=== PATIENT | male | born 1950 | race Hispanic/Latino ===

== ENCOUNTER 2020-06-13 12:25 | Outpatient (CLI) | payer MEDICARE ==
[2020-06-13 15:16] LABS: Hemoglobin 14.3 g/dL (13.5-17.5); Mean Corpuscular HGB CONC 31.8 g/dL (32.0-36.0); Mean Corpuscular Hemoglobin 28.8 pg (27.0-33.0); Mean Corpuscular Volume 90.7 fl (81.2-95.1); Mean Platelet Volume 11.2 fl (7.4-10.4); Platelet Count 304 10x3/uL (150-450); RBC Distribution Width 14.2 % (11.5-14.5); Red Blood Cell (RBC) Count 4.96 10x6/uL (4.32-5.72); White Blood Cell (WBC) Count 8.7 10x3/uL (3.5-10.5)
[2020-06-13 15:30] LABS: Prothrombin Time 10.6 sec (9.5-12.1)
[2020-06-13 15:33] LABS: Anion Gap 13 mmol/L (10-20); BUN (Urea Nitrogen) 11 mg/dL (8.4-25.7); Calc. Creatinine Clearance 0 mL/min (70-130); Calcium 9.9 mg/dL (7.8-10.44); Carbon Dioxide 26 mmol/L (23-31); Chloride 106 mmol/L (98-107); Glucose 80 mg/dL (80-115); Potassium 4.7 mmol/L (3.5-5.1); Sodium 140 mmol/L (136-145)
[2020-06-14 02:10] LABS: SARS-CoV-2 PCR by NAA Not Detected (NotDetected)
== END 2020-06-13 12:26 | disposition home or self-care (01) ==
LOC: LABBT 12:25
PROVIDERS: ATTEND Neurological Surgery
DX: Z01.812 Encounter for preprocedural laboratory examination (principal); M47.12 Other spondylosis with myelopathy, cervical region; Z20.822 Contact with and (suspected) exposure to COVID-19
CPT/HCPCS: 80048; 85027; 85610; 85730; U0003; U0005; 87635

== ENCOUNTER 2020-06-16 10:17 | Inpatient (IN) | payer MEDICARE ==
[2020-06-15 10:55] VITALS: BMI 33.0
[2020-06-16] MEDS ORDERED: EPINEPHrine 1 MG/ML AMP ONE (10:42)
[2020-06-16] MEDS ORDERED: Bupivacaine PF 0.5% 30 ML VIAL ONE (10:42)
[2020-06-16] MEDS ORDERED: Thrombin 5000 UNITS/5 ML VIAL ONE (10:43)
[2020-06-16] MEDS ORDERED: Bacitracin Zinc Ointment 30 gm TUBE ONE (10:43)
[2020-06-16] MEDS ORDERED: Fentanyl 100 MCG/2 ML VIAL ONE ×4 (12:05→19:22)
[2020-06-16] MEDS ORDERED: HYDROmorphone 0.5 MG/0.5 ML SYRINGE ONE (12:21)
[2020-06-16] MEDS ORDERED: ePHEDrine Sulfate 50 MG/10 ML VIAL ONE ×2 (12:29→14:38)
[2020-06-16] MEDS ORDERED: Lidocaine 1% PF 5 ML VIAL ONE (12:29)
[2020-06-16] MEDS ORDERED: Rocuronium Bromide 10 MG/ML (10ML VIAL) ONE (12:29)
[2020-06-16] MEDS ORDERED: PROPOFOL 200 MG/20 ML VIAL ONE (12:29)
[2020-06-16] MEDS ORDERED: PHENYLEPHRINE-NS 100 MCG/ML 10 ML SYRINGE ONE (12:29)
[2020-06-16] MEDS ORDERED: Ondansetron PF 4 MG/2 ML Vial ONE (12:29)
[2020-06-16] MEDS ORDERED: Glycopyrrolate 0.2 MG/ML 5 ML SYRINGE ONE (12:29)
[2020-06-16] MEDS ORDERED: Dexamethasone 20 MG/5 ML VIAL ONE (12:29)
[2020-06-16] MEDS ORDERED: Ondansetron HCl/PF 4 MG/2 ML Vial IVP PRN (13:31)
[2020-06-16] MEDS ORDERED: Promethazine HCl 25 MG/ML VIAL SLOW IVP PRN (13:31)
[2020-06-16] MEDS ORDERED: Promethazine HCl 25 MG/ML VIAL IM PRN ×2 (13:31→16:21)
[2020-06-16] MEDS ORDERED: Meperidine HCl/PF 25 MG/ML VIAL SLOW IVP PRN (13:31)
[2020-06-16] MEDS ORDERED: Promethazine 25 MG TAB PO PRN (16:21)
[2020-06-16] MEDS ORDERED: diphenhydrAMINE 50 MG/ML VIAL IVP PRN (16:21)
[2020-06-16] MEDS ORDERED: Acetaminophen/Codeine 30-300mg Tablet PO PRN ×2 (16:21)
[2020-06-16] MEDS ORDERED: diphenhydrAMINE 25 MG CAP PO PRN (16:21)
[2020-06-16] MEDS ORDERED: Promethazine HCl 12.5 MG SUPP PR PRN (16:21)
[2020-06-16] MEDS ORDERED: Bisacodyl 10 MG SUPP PR PRN (16:21)
[2020-06-16] MEDS ORDERED: traMADol HCl 50 MG TAB PO PRN (16:21)
[2020-06-16] MEDS ORDERED: Mag-Al 1200 mg/1200 mg/30 ML UDCUP PO PRN (16:21)
[2020-06-16] MEDS ORDERED: Ondansetron PF 4 MG/2 ML Vial IVP PRN (16:21)
[2020-06-16] MEDS: CEFAZOLIN 2 GM in Premix Bag 1 BAG IVPB SCH (20:54)
[2020-06-16] MEDS ORDERED: Acetaminophen 650 MG Suppository PR PRN (21:54)
[2020-06-16] MEDS ORDERED: Dextrose 5% in Water 1,000 ML IV PRN (21:56)
[2020-06-16] MEDS ORDERED: Dextrose 50% Abboject 50 ML SYRINGE SLOW IVP PRN (21:56)
[2020-06-16] MEDS: Sodium Chloride 0.9% 1,000 ML IV SCH (21:56)
[2020-06-16] MEDS ORDERED: HumaLOG 300 UNITS/3 ML VIAL SC PRN ×2 (21:56)
[2020-06-16] MEDS: tiZANidine HCl 4 MG TAB PO PRN (22:25)
[2020-06-16 22:31] LABS: #Basophils 0.1 thou/uL (0.0-0.2); #Lymphocytes 1.1 thou/uL (1.20-3.40); #Monocytes 0.6 thou/uL (0.11-0.59); #Neutrophils 16.6 thou/uL (1.40-6.50); %Basophils 0.4 % (0.0-1.0); %Lymphocytes 5.8 % (21.0-51.0); %Neutrophils 90.7 % (42.0-75.0); Hemoglobin 14.2 g/dL (14.0-18.0); Mean Corpuscular HGB CONC 31.1 g/dL (32.0-36.0); Mean Corpuscular Volume 93.3 fL (78.0-98.0); Mean Platelet Volume 8.2 fL (7.4-10.4); Platelet Count 280 thou/uL (130-400); Red Blood Cell (RBC) Count 4.88 mill/uL (4.70-6.10); White Blood Cell (WBC) Count 18.2 thou/uL (4.8-10.8)
[2020-06-16 22:51] LABS: Anion Gap 14 mmol/L (10-20); BUN (Urea Nitrogen) 15 mg/dL (8.4-25.7); Calc. Creatinine Clearance 97 mL/min (70-130); Calcium 9.3 mg/dL (7.8-10.44); Carbon Dioxide 21 mmol/L (23-31); Chloride 104 mmol/L (98-107); Glucose 188 mg/dL (80-115); Magnesium 1.7 mg/dL (1.6-2.6); Potassium 4.4 mmol/L (3.5-5.1); Sodium 135 mmol/L (136-145)
[2020-06-17] MEDS: HYDROcodone/Acetaminophen 10/325 mg Tablet PO PRN ×5 (01:06→22:46)
[2020-06-17] MEDS: CEFAZOLIN 2 GM in Premix Bag 1 BAG IVPB SCH ×2 (03:21→13:08)
[2020-06-17] MEDS: Morphine 2 MG/ML VIAL SLOW IVP PRN ×2 (03:27→04:34)
[2020-06-17] MEDS ORDERED: Magnesium 2 GM/50 ML 2 GM in Premix Bag 1 BAG IVPB SCH (03:30)
[2020-06-17] MEDS: Scopolamine 1.5 mg/72 hour Patch TD SCH (04:02)
[2020-06-17] MEDS: tiZANidine HCl 4 MG TAB PO PRN (04:09)
[2020-06-17] MEDS: Tamsulosin HCl 0.4 MG CAP PO SCH (04:34)
[2020-06-17] MEDS: Sodium Chloride 0.9% 1,000 ML IV SCH ×2 (05:00→20:25)
[2020-06-17 05:56] LABS: Band 9 % (5-11); Hemoglobin 13.2 g/dL (14.0-18.0); Lymphocytes 11 % (21-51); MDiff Complete? YES; Mean Corpuscular HGB CONC 30.9 g/dL (32.0-36.0); Mean Corpuscular Hemoglobin 28.6 pg (27.0-31.0); Mean Corpuscular Volume 92.6 fL (78.0-98.0); Mean Platelet Volume 8.6 fL (7.4-10.4); Monocytes 7 % (0-10); Neutrophil 73 % (42-75); Platelet Count 258 thou/uL (130-400); Platelet Morphology Comment Appears Adequate; RBC Distribution Width 12.9 % (11.5-14.5); RBC Morphology Normal; Red Blood Cell (RBC) Count 4.62 mill/uL (4.70-6.10)
[2020-06-17 06:05] LABS: Anion Gap 14 mmol/L (10-20); BUN (Urea Nitrogen) 14 mg/dL (8.4-25.7); Calc. Creatinine Clearance 116 mL/min (70-130); Calcium 9.3 mg/dL (7.8-10.44); Carbon Dioxide 24 mmol/L (23-31); Chloride 102 mmol/L (98-107); Glucose 138 mg/dL (80-115); Potassium 4.3 mmol/L (3.5-5.1); Sodium 136 mmol/L (136-145)
[2020-06-17] MEDS: metFORMIN 500 MG TAB PO SCH (08:49)
[2020-06-17] MEDS: Amlodipine 10 MG TAB PO SCH (09:46)
[2020-06-17] MEDS: Trospium 20 MG TAB PO SCH ×2 (09:47→21:21)
[2020-06-17] MEDS: Loratadine 10 MG TAB PO SCH (09:47)
[2020-06-17 10:57] LABS: Lactic Acid 1.5 mmol/L (0.5-2.2)
[2020-06-17] MEDS: traZODone HCl 50 MG TAB PO SCH (21:22)
[2020-06-17] MEDS: Cephalexin 250 MG CAP PO SCH (22:46)
[2020-06-18 00:03] LABS: Bacteria/HPF None Seen HPF (None Seen); Bilirubin Negative (Negative); Blood, Urine Negative (Negative); Clarity Clear (Clear); Glucose, Urine (Dipstick) 70 mg/dL (Negative); Ketone, Urine Negative (Negative); Leukocyte Negative Leu/uL (Negative); Nitrite Negative (Negative); Protein, Urine (Dipstick) 10 mg/dL (Neg-Trace); RBC/HPF 0-3 HPF (0-3); Squamous Epithelial 0-3 HPF (0-3); Urobilinogen Normal mg/dL (Less than 2); WBC/HPF 0-3 HPF (0-3)
[2020-06-18] MEDS: tiZANidine HCl 4 MG TAB PO PRN ×3 (01:03→16:54)
[2020-06-18] MEDS: traMADol HCl 50 MG TAB PO PRN ×2 (01:04→12:14)
[2020-06-18 05:30] LABS: #Basophils 0.1 thou/uL (0.0-0.2); #Eosinphils 0.1 thou/uL (0.0-0.7); #Lymphocytes 3.9 thou/uL (1.20-3.40); #Monocytes 2.5 thou/uL (0.11-0.59); #Neutrophils 12.4 thou/uL (1.40-6.50); %Basophils 0.3 % (0.0-1.0); %Eosinophils 0.4 % (0.0-10.0); %Lymphocytes 20.8 % (21.0-51.0); %Neutrophils 65.6 % (42.0-75.0); Hemoglobin 12.7 g/dL (14.0-18.0); Mean Corpuscular HGB CONC 31.3 g/dL (32.0-36.0); Mean Corpuscular Hemoglobin 29.4 pg (27.0-31.0); Mean Platelet Volume 8.7 fL (7.4-10.4); Platelet Count 251 thou/uL (130-400); Red Blood Cell (RBC) Count 4.31 mill/uL (4.70-6.10); White Blood Cell (WBC) Count 18.9 thou/uL (4.8-10.8)
[2020-06-18] MEDS: HYDROcodone/Acetaminophen 10/325 mg Tablet PO PRN ×3 (05:51→16:53)
[2020-06-18] MEDS: Tamsulosin HCl 0.4 MG CAP PO SCH (05:51)
[2020-06-18] MEDS: Cephalexin 250 MG CAP PO SCH (05:51)
[2020-06-18] MEDS: Sodium Chloride 0.9% 1,000 ML IV SCH ×2 (08:16→21:36)
[2020-06-18] MEDS: Loratadine 10 MG TAB PO SCH (09:06)
[2020-06-18] MEDS: Trospium 20 MG TAB PO SCH ×2 (09:06→21:19)
[2020-06-18] MEDS: Amlodipine 10 MG TAB PO SCH (09:06)
[2020-06-18] MEDS: metFORMIN 500 MG TAB PO SCH (09:06)
[2020-06-18] MEDS: traZODone HCl 50 MG TAB PO SCH (21:19)
[2020-06-19] MEDS: HYDROcodone/Acetaminophen 10/325 mg Tablet PO PRN ×6 (03:44→20:47)
[2020-06-19 05:34] LABS: #Basophils 0.1 thou/uL (0.0-0.2); #Eosinphils 0.2 thou/uL (0.0-0.7); #Lymphocytes 4.4 thou/uL (1.20-3.40); #Monocytes 2.1 thou/uL (0.11-0.59); #Neutrophils 8.7 thou/uL (1.40-6.50); %Basophils 0.8 % (0.0-1.0); %Eosinophils 1.3 % (0.0-10.0); %Lymphocytes 28.5 % (21.0-51.0); %Monocytes 13.4 % (0.0-10.0); %Neutrophils 56.1 % (42.0-75.0); Hemoglobin 12.5 g/dL (14.0-18.0); Mean Corpuscular HGB CONC 32.7 g/dL (32.0-36.0); Mean Corpuscular Hemoglobin 30.7 pg (27.0-31.0); Mean Corpuscular Volume 93.8 fL (78.0-98.0); Mean Platelet Volume 8.9 fL (7.4-10.4); Platelet Count 247 thou/uL (130-400); RBC Distribution Width 12.8 % (11.5-14.5); Red Blood Cell (RBC) Count 4.07 mill/uL (4.70-6.10); White Blood Cell (WBC) Count 15.5 thou/uL (4.8-10.8)
[2020-06-19 05:58] LABS: Anion Gap 12 mmol/L (10-20); BUN (Urea Nitrogen) 13 mg/dL (8.4-25.7); Calc. Creatinine Clearance 137 mL/min (70-130); Calcium 9.9 mg/dL (7.8-10.44); Carbon Dioxide 25 mmol/L (23-31); Chloride 102 mmol/L (98-107); Glucose 104 mg/dL (80-115); Potassium 4.2 mmol/L (3.5-5.1); Sodium 135 mmol/L (136-145)
[2020-06-19] MEDS: Tamsulosin HCl 0.4 MG CAP PO SCH (06:04)
[2020-06-19] MEDS: tiZANidine HCl 4 MG TAB PO PRN ×4 (07:22→22:46)
[2020-06-19] MEDS: metFORMIN 500 MG TAB PO SCH (08:26)
[2020-06-19] MEDS: Trospium 20 MG TAB PO SCH ×2 (08:26→20:46)
[2020-06-19] MEDS: Loratadine 10 MG TAB PO SCH (08:26)
[2020-06-19] MEDS: Amlodipine 10 MG TAB PO SCH (08:26)
[2020-06-19] MEDS: Sodium Chloride 0.9% 1,000 ML IV SCH (13:36)
[2020-06-19] MEDS: Scopolamine 1.5 mg/72 hour Patch TD SCH (16:45)
[2020-06-19] MEDS: traZODone HCl 50 MG TAB PO SCH (20:47)
[2020-06-19] MEDS: traMADol HCl 50 MG TAB PO PRN (22:45)
[2020-06-20] MEDS: Sodium Chloride 0.9% 1,000 ML IV SCH ×2 (01:45→10:25)
[2020-06-20] MEDS: tiZANidine HCl 4 MG TAB PO PRN ×4 (04:26→23:05)
[2020-06-20] MEDS: HYDROcodone/Acetaminophen 10/325 mg Tablet PO PRN ×5 (04:26→23:04)
[2020-06-20] MEDS: Tamsulosin HCl 0.4 MG CAP PO SCH (05:17)
[2020-06-20 06:32] LABS: #Basophils 0.1 thou/uL (0.0-0.2); #Eosinphils 0.4 thou/uL (0.0-0.7); #Lymphocytes 4.5 thou/uL (1.20-3.40); #Monocytes 1.6 thou/uL (0.11-0.59); %Basophils 0.7 % (0.0-1.0); %Eosinophils 2.7 % (0.0-10.0); %Lymphocytes 33.1 % (21.0-51.0); %Monocytes 11.8 % (0.0-10.0); %Neutrophils 51.8 % (42.0-75.0); Hemoglobin 12.4 g/dL (14.0-18.0); Mean Corpuscular Volume 93.3 fL (78.0-98.0); Mean Platelet Volume 8.9 fL (7.4-10.4); Platelet Count 297 thou/uL (130-400); RBC Distribution Width 12.7 % (11.5-14.5); Red Blood Cell (RBC) Count 4.29 mill/uL (4.70-6.10); White Blood Cell (WBC) Count 13.5 thou/uL (4.8-10.8)
[2020-06-20 06:45] LABS: Anion Gap 11 mmol/L (10-20); BUN (Urea Nitrogen) 13 mg/dL (8.4-25.7); Calc. Creatinine Clearance 135 mL/min (70-130); Calcium 9.9 mg/dL (7.8-10.44); Carbon Dioxide 27 mmol/L (23-31); Chloride 100 mmol/L (98-107); Glucose 93 mg/dL (80-115); Potassium 3.9 mmol/L (3.5-5.1); Sodium 134 mmol/L (136-145)
[2020-06-20] MEDS: Trospium 20 MG TAB PO SCH ×2 (09:06→20:29)
[2020-06-20] MEDS: Loratadine 10 MG TAB PO SCH (09:06)
[2020-06-20] MEDS: metFORMIN 500 MG TAB PO SCH (09:06)
[2020-06-20] MEDS: Amlodipine 10 MG TAB PO SCH (09:06)
[2020-06-20] MEDS: Milk Of Magnesia 30 ML UDCUP PO PRN (17:58)
[2020-06-20] MEDS: traZODone HCl 50 MG TAB PO SCH (20:29)
[2020-06-21] MEDS: Sodium Chloride 0.9% 1,000 ML IV SCH ×2 (05:34→12:35)
[2020-06-21] MEDS: HYDROcodone/Acetaminophen 10/325 mg Tablet PO PRN ×3 (05:44→20:09)
[2020-06-21] MEDS: Tamsulosin HCl 0.4 MG CAP PO SCH (05:44)
[2020-06-21] MEDS: Trospium 20 MG TAB PO SCH ×2 (08:08→20:07)
[2020-06-21] MEDS: Loratadine 10 MG TAB PO SCH (08:08)
[2020-06-21] MEDS: metFORMIN 500 MG TAB PO SCH (08:08)
[2020-06-21] MEDS: Amlodipine 10 MG TAB PO SCH (08:08)
[2020-06-21] MEDS: Milk Of Magnesia 30 ML UDCUP PO PRN (08:39)
[2020-06-21] MEDS: tiZANidine HCl 4 MG TAB PO PRN (20:08)
[2020-06-21] MEDS: traZODone HCl 50 MG TAB PO SCH (20:08)
[2020-06-22] MEDS: HYDROcodone/Acetaminophen 10/325 mg Tablet PO PRN ×4 (01:39→18:06)
[2020-06-22] MEDS: Sodium Chloride 0.9% 1,000 ML IV SCH (05:54)
[2020-06-22] MEDS: Tamsulosin HCl 0.4 MG CAP PO SCH (06:10)
[2020-06-22] MEDS: metFORMIN 500 MG TAB PO SCH (08:21)
[2020-06-22] MEDS: Amlodipine 10 MG TAB PO SCH (08:21)
[2020-06-22] MEDS: Loratadine 10 MG TAB PO SCH (08:21)
[2020-06-22] MEDS: Trospium 20 MG TAB PO SCH ×2 (08:22→20:11)
[2020-06-22] MEDS: tiZANidine HCl 4 MG TAB PO PRN ×2 (10:21→18:05)
[2020-06-22] MEDS: Scopolamine 1.5 mg/72 hour Patch TD SCH (18:07)
[2020-06-22] MEDS: traMADol HCl 50 MG TAB PO PRN (20:09)
[2020-06-22] MEDS: traZODone HCl 50 MG TAB PO SCH (20:11)
[2020-06-23] MEDS: Sodium Chloride 0.9% 1,000 ML IV SCH ×3 (00:06→22:51)
[2020-06-23] MEDS: traMADol HCl 50 MG TAB PO PRN ×2 (03:28→20:36)
[2020-06-23] MEDS: HYDROcodone/Acetaminophen 10/325 mg Tablet PO PRN ×3 (06:14→18:36)
[2020-06-23] MEDS: Tamsulosin HCl 0.4 MG CAP PO SCH (06:14)
[2020-06-23] MEDS: Amlodipine 10 MG TAB PO SCH (10:10)
[2020-06-23] MEDS: Trospium 20 MG TAB PO SCH ×2 (10:10→20:32)
[2020-06-23] MEDS: Loratadine 10 MG TAB PO SCH (10:11)
[2020-06-23] MEDS: metFORMIN 500 MG TAB PO SCH (10:11)
[2020-06-23] MEDS: tiZANidine HCl 4 MG TAB PO PRN (15:24)
[2020-06-23] MEDS: traZODone HCl 50 MG TAB PO SCH (20:32)
[2020-06-24] MEDS: Tamsulosin HCl 0.4 MG CAP PO SCH (06:04)
[2020-06-24] MEDS: HYDROcodone/Acetaminophen 10/325 mg Tablet PO PRN ×3 (06:08→14:40)
[2020-06-24] MEDS: Amlodipine 10 MG TAB PO SCH (08:40)
[2020-06-24] MEDS: Trospium 20 MG TAB PO SCH ×2 (08:40→21:20)
[2020-06-24] MEDS: metFORMIN 500 MG TAB PO SCH (08:40)
[2020-06-24] MEDS: Loratadine 10 MG TAB PO SCH (08:40)
[2020-06-24] MEDS: Sodium Chloride 0.9% 1,000 ML IV SCH (14:56)
[2020-06-24] MEDS: Acetaminophen 325 MG TAB PO PRN (18:38)
[2020-06-24] MEDS: traZODone HCl 50 MG TAB PO SCH (21:20)
[2020-06-25] MEDS: Acetaminophen 325 MG TAB PO PRN ×3 (00:20→12:52)
[2020-06-25] MEDS: Sodium Chloride 0.9% 1,000 ML IV SCH ×2 (01:24→12:56)
[2020-06-25] MEDS: tiZANidine HCl 4 MG TAB PO PRN ×2 (02:09→08:18)
[2020-06-25] MEDS: Tamsulosin HCl 0.4 MG CAP PO SCH (05:52)
[2020-06-25] MEDS ORDERED: Acetaminophen/Codeine 30-300mg Tablet PO PRN (07:05)
[2020-06-25] MEDS ORDERED: Morphine 2 MG/ML VIAL SLOW IVP PRN (07:15)
[2020-06-25] MEDS: Acetaminophen/Codeine 30-300mg Tablet PO PRN ×3 (08:17→21:27)
[2020-06-25] MEDS: Amlodipine 10 MG TAB PO SCH (08:18)
[2020-06-25] MEDS: metFORMIN 500 MG TAB PO SCH (08:18)
[2020-06-25] MEDS: Loratadine 10 MG TAB PO SCH (08:18)
[2020-06-25] MEDS ORDERED: tiZANidine HCl 4 MG TAB PO PRN (09:00)
[2020-06-25] MEDS: Trospium 20 MG TAB PO SCH ×2 (09:15→20:24)
[2020-06-25] MEDS ORDERED: Ibuprofen 600 MG TAB PO PRN (14:38)
[2020-06-25] MEDS: Milk Of Magnesia 30 ML UDCUP PO PRN (15:32)
[2020-06-25] MEDS: Scopolamine 1.5 mg/72 hour Patch TD SCH (16:18)
[2020-06-25] MEDS: traZODone HCl 50 MG TAB PO SCH (20:24)
[2020-06-25] MEDS: Gabapentin 100 MG CAP PO SCH (20:24)
[2020-06-26] MEDS: Sodium Chloride 0.9% 1,000 ML IV SCH ×2 (04:26→15:45)
[2020-06-26] MEDS: Acetaminophen/Codeine 30-300mg Tablet PO PRN ×3 (05:31→20:54)
[2020-06-26] MEDS: Tamsulosin HCl 0.4 MG CAP PO SCH (05:31)
[2020-06-26 07:52] LABS: #Basophils 0.1 thou/uL (0.0-0.2); #Eosinphils 0.5 thou/uL (0.0-0.7); #Lymphocytes 5.1 thou/uL (1.20-3.40); #Monocytes 1.6 thou/uL (0.11-0.59); #Neutrophils 5.7 thou/uL (1.40-6.50); %Basophils 0.9 % (0.0-1.0); %Eosinophils 4.1 % (0.0-10.0); %Lymphocytes 38.8 % (21.0-51.0); %Monocytes 12.6 % (0.0-10.0); %Neutrophils 43.6 % (42.0-75.0); Hemoglobin 14.1 g/dL (14.0-18.0); Mean Corpuscular HGB CONC 31.9 g/dL (32.0-36.0); Mean Corpuscular Hemoglobin 29.3 pg (27.0-31.0); Mean Platelet Volume 7.6 fL (7.4-10.4); Platelet Count 430 thou/uL (130-400); RBC Distribution Width 12.3 % (11.5-14.5); Red Blood Cell (RBC) Count 4.81 mill/uL (4.70-6.10); White Blood Cell (WBC) Count 13.1 thou/uL (4.8-10.8)
[2020-06-26 08:13] LABS: Anion Gap 13 mmol/L (10-20); BUN (Urea Nitrogen) 12 mg/dL (8.4-25.7); Calc. Creatinine Clearance 113 mL/min (70-130); Calcium 10.9 mg/dL (7.8-10.44); Carbon Dioxide 26 mmol/L (23-31); Chloride 101 mmol/L (98-107); Glucose 104 mg/dL (80-115); Potassium 4.1 mmol/L (3.5-5.1); Sodium 136 mmol/L (136-145)
[2020-06-26] MEDS: Trospium 20 MG TAB PO SCH ×2 (09:02→20:54)
[2020-06-26] MEDS: Amlodipine 10 MG TAB PO SCH (09:02)
[2020-06-26] MEDS: metFORMIN 500 MG TAB PO SCH (09:02)
[2020-06-26] MEDS: Loratadine 10 MG TAB PO SCH (09:02)
[2020-06-26] MEDS: tiZANidine HCl 4 MG TAB PO PRN (12:55)
[2020-06-26] MEDS: Gabapentin 100 MG CAP PO SCH (20:53)
[2020-06-26] MEDS: traZODone HCl 50 MG TAB PO SCH (20:54)
[2020-06-27] MEDS: Acetaminophen/Codeine 30-300mg Tablet PO PRN ×3 (03:53→15:37)
[2020-06-27] MEDS: Tamsulosin HCl 0.4 MG CAP PO SCH (05:21)
[2020-06-27] MEDS: Sodium Chloride 0.9% 1,000 ML IV SCH (05:35)
[2020-06-27] MEDS: Loratadine 10 MG TAB PO SCH (07:53)
[2020-06-27] MEDS: Amlodipine 10 MG TAB PO SCH (07:53)
[2020-06-27] MEDS: metFORMIN 500 MG TAB PO SCH (07:53)
[2020-06-27] MEDS: Trospium 20 MG TAB PO SCH (07:54)
[2020-06-27 12:04] VITALS: BP 144/75; TEMP 98
[2020-06-27] MEDS: tiZANidine HCl 4 MG TAB PO PRN (15:37)
== END 2020-06-27 15:46 | disposition swing bed (61) | DRG 520 ==
LOC: SDC 10:17 → SURG A 16:21
PROVIDERS: ADMIT Neurological Surgery; ATTEND Internal Medicine
PROC: 00NW0ZZ Release Cervical Spinal Cord, Open Approach (ICD-10-PCS; principal; 2020-06-16)
PROC: 00NX0ZZ Release Thoracic Spinal Cord, Open Approach (ICD-10-PCS; 2020-06-16)
DX: M47.12 Other spondylosis with myelopathy, cervical region (principal); Z20.822 Contact with and (suspected) exposure to COVID-19; M48.02 Spinal stenosis, cervical region; E11.9 Type 2 diabetes mellitus without complications; E78.5 Hyperlipidemia, unspecified; I10 Essential (primary) hypertension; E78.00 Pure hypercholesterolemia, unspecified; M19.90 Unspecified osteoarthritis, unspecified site; G89.29 Other chronic pain; M54.2 Cervicalgia; M54.9 Dorsalgia, unspecified; F41.9 Anxiety disorder, unspecified; F32.9 Major depressive disorder, single episode, unspecified; F43.10 Post-traumatic stress disorder, unspecified; E66.9 Obesity, unspecified; F39 Unspecified mood [affective] disorder; N40.1 Benign prostatic hyperplasia with lower urinary tract symptoms; R35.0 Frequency of micturition; N39.498 Other specified urinary incontinence; R30.0 Dysuria; M79.662 Pain in left lower leg; S86.812A Strain of other muscle(s) and tendon(s) at lower leg level, left leg, initial encounter; Z68.33 Body mass index [BMI] 33.0-33.9, adult; Z87.891 Personal history of nicotine dependence; Z82.49 Family history of ischemic heart disease and other diseases of the circulatory system; Z90.49 Acquired absence of other specified parts of digestive tract; Z79.82 Long term (current) use of aspirin; Z83.3 Family history of diabetes mellitus; Z82.3 Family history of stroke; Z88.8 Allergy status to other drugs, medicaments and biological substances; Z79.84 Long term (current) use of oral hypoglycemic drugs; M48.061 Spinal stenosis, lumbar region without neurogenic claudication
CPT/HCPCS: 36415; 36416; 71045; 76000; 80048; 81001; 83605; 83735; 85007; 85025; 85027; 85610; 85730; 87635; 93970; J0171; J0690; J1100; J1170; J2270; J2405; J2704; J3010; J3370; J3475; J3490; Q0163; S0020; U0003; U0005

== ENCOUNTER 2022-04-06 06:19 | Inpatient (IN) | payer MEDICARE ==
[2022-04-04 11:37] VITALS: BMI 36.0
[2022-04-06] MEDS ORDERED: Neomycin-Polymyxin 1 ML AMP ONE (06:23)
[2022-04-06] MEDS ORDERED: Thrombin 5000 UNITS/5 ML VIAL ONE (06:23)
[2022-04-06] MEDS ORDERED: fentaNYL PF 100 MCG/2 ML SYRINGE ONE (06:30)
[2022-04-06] MEDS ORDERED: PHENYLEPHRINE-NS 100 MCG/ML 10 ML SYRINGE ONE ×2 (06:31→07:09)
[2022-04-06] MEDS ORDERED: CEFAZOLIN 2 GM VIAL ONE ×2 (06:46→14:19)
[2022-04-06] MEDS ORDERED: Sodium Chloride 0.9% 100 ML ONE ×2 (06:46→14:19)
[2022-04-06 07:02] LABS: #Basophils 0.1 thou/uL (0.0-0.2); #Eosinphils 0.7 thou/uL (0.0-0.7); #Lymphocytes 5.6 thou/uL (1.20-3.40); #Neutrophils 4.2 thou/uL (1.40-6.50); %Eosinophils 6.3 % (0.0-10.0); %Lymphocytes 48.1 % (21.0-51.0); %Monocytes 8.9 % (0.0-10.0); %Neutrophils 35.7 % (42.0-75.0); Hemoglobin 15.2 g/dL (14.0-18.0); Mean Corpuscular HGB CONC 32.1 g/dL (32.0-36.0); Mean Corpuscular Hemoglobin 30.1 pg (27.0-31.0); Mean Corpuscular Volume 93.8 fl (78.0-98.0); Mean Platelet Volume 9.8 fL (7.4-10.4); Platelet Count 222 10x3/uL (130-400); RBC Distribution Width 12.6 % (11.5-14.5); Red Blood Cell (RBC) Count 5.04 mill/uL (4.70-6.10); White Blood Cell (WBC) Count 11.7 10x3/uL (4.8-10.8)
[2022-04-06] MEDS ORDERED: Midazolam HCl 2 mg/2 ml Vial ONE (07:03)
[2022-04-06] MEDS ORDERED: PROPOFOL 200 MG/20 ML VIAL ONE (07:09)
[2022-04-06] MEDS ORDERED: Ondansetron PF 4 MG/2 ML Vial ONE (07:09)
[2022-04-06] MEDS ORDERED: Ketorolac Tromethamine 30 MG/ML VIAL ONE (07:09)
[2022-04-06] MEDS ORDERED: Rocuronium Bromide 10 MG/ML (10ML VIAL) ONE (07:09)
[2022-04-06] MEDS ORDERED: ePHEDrine 50 MG/ML VIAL ONE (07:09)
[2022-04-06 07:26] LABS: Anion Gap 15 mmol/L (10-20); BUN (Urea Nitrogen) 8 mg/dL (8.4-25.7); Calc. Creatinine Clearance 132 mL/min (70-130); Calcium 10.5 mg/dL (7.8-10.44); Carbon Dioxide 24 mmol/L (23-31); Chloride 106 mmol/L (98-107); Estimated GFR 97; Glucose 90 mg/dL (80-115); Potassium 4.8 mmol/L (3.5-5.1); Sodium 140 mmol/L (136-145)
[2022-04-06 07:31] LABS: SARS-CoV-2 NAA Rapid Test Not Detected (NotDetected)
[2022-04-06 07:33] LABS: INR-International Normal Ratio 0.9; Prothrombin Time 12.8 sec (12.0-14.7)
[2022-04-06 07:34] LABS: PTT 29.5 sec (22.9-36.1)
[2022-04-06] MEDS ORDERED: SUGAMMADEX SODIUM 200 MG/2 ML VIAL ONE (09:59)
[2022-04-06] MEDS ORDERED: HYDROmorphone 2 MG/ML VIAL SLOW IVP PRN (10:32)
[2022-04-06] MEDS ORDERED: Ondansetron HCl/PF 4 MG/2 ML Vial IVP PRN (10:32)
[2022-04-06] MEDS ORDERED: Fentanyl 100 MCG/2 ML VIAL ONE (10:54)
[2022-04-06] MEDS ORDERED: Ondansetron PF 4 MG/2 ML Vial IVP PRN (12:11)
[2022-04-06] MEDS: CEFAZOLIN 2 GM in Sodium Chloride 0.9% 100 ML IVPB SCH ×2 (14:24→21:24)
[2022-04-06] MEDS: Gabapentin 400 MG CAP PO SCH ×2 (15:12→21:22)
[2022-04-06] MEDS: Sodium Chloride 0.9% 1,000 ML IV SCH (15:13)
[2022-04-06] MEDS ORDERED: diphenhydrAMINE 25 MG CAP PO PRN (15:25)
[2022-04-06] MEDS ORDERED: diphenhydrAMINE 50 MG/ML VIAL IVP PRN (15:25)
[2022-04-06] MEDS: Morphine 2 MG/ML VIAL SLOW IVP PRN ×2 (21:23→23:37)
[2022-04-06] MEDS: HYDROcodone/Acetaminophen 10/325 mg Tablet PO PRN (21:24)
[2022-04-07] MEDS: Morphine 2 MG/ML VIAL SLOW IVP PRN ×2 (03:36→06:20)
[2022-04-07] MEDS: HYDROcodone/Acetaminophen 10/325 mg Tablet PO PRN ×4 (03:38→21:58)
[2022-04-07] MEDS: Brimonidine Tartrate 0.2% Ophth Soln 5 ml Bottle EA EYE SCH ×3 (03:39→21:53)
[2022-04-07] MEDS: Acetaminophen 325 MG TAB PO PRN ×2 (03:39→10:34)
[2022-04-07] MEDS: Sodium Chloride 0.9% 1,000 ML IV SCH ×2 (05:09→16:47)
[2022-04-07] MEDS ORDERED: hydrALAZINE 20 MG/ML VIAL SLOW IVP PRN (06:16)
[2022-04-07] MEDS: Acetaminophen/Codeine 30-300mg Tablet PO PRN (06:21)
[2022-04-07] MEDS: Tamsulosin HCl 0.4 MG CAP PO SCH (06:21)
[2022-04-07] MEDS: Amlodipine 10 MG TAB PO SCH (10:23)
[2022-04-07] MEDS: Loratadine 10 MG TAB PO SCH (10:23)
[2022-04-07] MEDS: Gabapentin 400 MG CAP PO SCH ×3 (10:36→21:53)
[2022-04-07] MEDS: tiZANidine HCl 4 MG TAB PO PRN (16:56)
[2022-04-07] MEDS: Latanoprost 0.005% Ophth Soln 2.5 ml Bottle L EYE SCH (17:02)
[2022-04-08] MEDS: Sodium Chloride 0.9% 1,000 ML IV SCH ×2 (01:19→16:01)
[2022-04-08] MEDS: HYDROcodone/Acetaminophen 10/325 mg Tablet PO PRN ×3 (02:59→22:15)
[2022-04-08] MEDS: Tamsulosin HCl 0.4 MG CAP PO SCH (04:06)
[2022-04-08] MEDS: Acetaminophen 325 MG TAB PO PRN ×2 (04:07→17:24)
[2022-04-08] MEDS: Loratadine 10 MG TAB PO SCH (08:24)
[2022-04-08] MEDS: Gabapentin 400 MG CAP PO SCH ×3 (08:24→22:14)
[2022-04-08] MEDS: Latanoprost 0.005% Ophth Soln 2.5 ml Bottle L EYE SCH (08:25)
[2022-04-08] MEDS: Brimonidine Tartrate 0.2% Ophth Soln 5 ml Bottle EA EYE SCH ×2 (08:25→22:15)
[2022-04-08] MEDS: tiZANidine HCl 4 MG TAB PO PRN ×2 (08:25→22:15)
[2022-04-08] MEDS: Amlodipine 10 MG TAB PO SCH (08:25)
[2022-04-08] MEDS: Acetaminophen/Codeine 30-300mg Tablet PO PRN (11:46)
[2022-04-08] MEDS: HYDROcodone/Acetaminophen 7.5/325 mg Tablet PO PRN (16:46)
[2022-04-08 17:42] LABS: Bacteria/HPF None Seen HPF (None Seen); Bilirubin Negative (Negative); Blood, Urine Negative (Negative); CAUTI Indications for Culture Fever or rigors; Clarity Clear (Clear); Glucose, Urine (Dipstick) Normal (Negative); Ketone, Urine Negative (Negative); Leukocyte Negative Leu/uL (Negative); Mucous/LPF 2+ LPF (<2+); Nitrite Negative (Negative); Protein, Urine (Dipstick) 20 mg/dL (Neg-Trace); RBC/HPF 0-3 HPF (0-3); Specific Gravity, Urine 1.029 (1.002-1.036); Squamous Epithelial 0-3 HPF (0-3); Urobilinogen Normal mg/dL (Less than 2); WBC/HPF 0-3 HPF (0-3)
[2022-04-08 18:02] LABS: Urine Culture Reflex No No
[2022-04-09] MEDS: Sodium Chloride 0.9% 1,000 ML IV SCH ×2 (04:52→22:00)
[2022-04-09] MEDS: HYDROcodone/Acetaminophen 10/325 mg Tablet PO PRN ×2 (06:06→11:38)
[2022-04-09] MEDS: Tamsulosin HCl 0.4 MG CAP PO SCH (06:06)
[2022-04-09] MEDS: Amlodipine 10 MG TAB PO SCH (09:09)
[2022-04-09] MEDS: Brimonidine Tartrate 0.2% Ophth Soln 5 ml Bottle EA EYE SCH ×2 (09:09→22:00)
[2022-04-09] MEDS: Loratadine 10 MG TAB PO SCH (09:09)
[2022-04-09] MEDS: Latanoprost 0.005% Ophth Soln 2.5 ml Bottle L EYE SCH (09:12)
[2022-04-09] MEDS: Acetaminophen/Codeine 30-300mg Tablet PO PRN ×2 (09:16→15:41)
[2022-04-09] MEDS: Gabapentin 400 MG CAP PO SCH ×3 (09:17→21:47)
[2022-04-09] MEDS ORDERED: Polyethylene Glycol 3350 17 GM Packet PO SCH (11:30)
[2022-04-09] MEDS: Acetaminophen 325 MG TAB PO PRN (21:50)
[2022-04-09] MEDS: tiZANidine HCl 4 MG TAB PO PRN (21:59)
[2022-04-10] MEDS: Tamsulosin HCl 0.4 MG CAP PO SCH (05:11)
[2022-04-10] MEDS: HYDROcodone/Acetaminophen 7.5/325 mg Tablet PO PRN (05:11)
[2022-04-10] MEDS: Loratadine 10 MG TAB PO SCH (08:31)
[2022-04-10] MEDS: Amlodipine 10 MG TAB PO SCH (08:31)
[2022-04-10] MEDS: Gabapentin 400 MG CAP PO SCH ×3 (08:31→20:50)
[2022-04-10] MEDS: Acetaminophen/Codeine 30-300mg Tablet PO PRN ×2 (08:32→20:50)
[2022-04-10] MEDS: Latanoprost 0.005% Ophth Soln 2.5 ml Bottle L EYE SCH (08:32)
[2022-04-10] MEDS: tiZANidine HCl 4 MG TAB PO PRN (08:39)
[2022-04-10] MEDS: Sodium Chloride 0.9% 1,000 ML IV SCH ×2 (09:34→20:52)
[2022-04-10] MEDS: Brimonidine Tartrate 0.2% Ophth Soln 5 ml Bottle EA EYE SCH ×2 (09:51→20:51)
[2022-04-10] MEDS: HYDROcodone/Acetaminophen 10/325 mg Tablet PO PRN ×2 (13:15→17:30)
[2022-04-10] MEDS ORDERED: Fleet Saline Enema 133 ML BOT FS SCH (14:45)
[2022-04-10] MEDS ORDERED: Docusate 100 MG CAP PO SCH (14:45)
[2022-04-11] MEDS: tiZANidine HCl 4 MG TAB PO PRN ×2 (03:24→15:07)
[2022-04-11] MEDS: HYDROcodone/Acetaminophen 10/325 mg Tablet PO PRN (03:24)
[2022-04-11] MEDS: Tamsulosin HCl 0.4 MG CAP PO SCH (05:44)
[2022-04-11] MEDS: Acetaminophen/Codeine 30-300mg Tablet PO PRN ×2 (05:44→15:04)
[2022-04-11] MEDS ORDERED: Bisacodyl 10 MG SUPP PR PRN (06:14)
[2022-04-11] MEDS ORDERED: Polyethylene Glycol 3350 17 GM Packet PO SCH (09:00)
[2022-04-11] MEDS ORDERED: Docusate 100 MG CAP PO SCH (09:00)
[2022-04-11] MEDS: Gabapentin 400 MG CAP PO SCH ×2 (09:03→15:05)
[2022-04-11] MEDS: Loratadine 10 MG TAB PO SCH (09:04)
[2022-04-11] MEDS: Amlodipine 10 MG TAB PO SCH (09:04)
[2022-04-11] MEDS: Latanoprost 0.005% Ophth Soln 2.5 ml Bottle L EYE SCH (09:05)
[2022-04-11] MEDS: Brimonidine Tartrate 0.2% Ophth Soln 5 ml Bottle EA EYE SCH (09:06)
[2022-04-11 12:57] VITALS: BP 172/82; TEMP 99.3
[2022-04-11] MEDS: Sodium Chloride 0.9% 1,000 ML IV SCH (13:27)
== END 2022-04-11 18:10 | disposition home or self-care (01) | DRG 473 ==
LOC: SDC 06:19 → SJJU 11:46 → OBSVTOIN 04-08 20:02
PROVIDERS: ADMIT Neurological Surgery; ATTEND Neurological Surgery
PROC: 0RG10A0 Fusion of Cervical Vertebral Joint with Interbody Fusion Device, Anterior Approach, Anterior Column, Open Approach (ICD-10-PCS; principal; 2022-04-06)
PROC: 0RB30ZZ Excision of Cervical Vertebral Disc, Open Approach (ICD-10-PCS; 2022-04-06)
PROC: 00NW0ZZ Release Cervical Spinal Cord, Open Approach (ICD-10-PCS; 2022-04-06)
PROC: 3E033XZ Introduction of Vasopressor into Peripheral Vein, Percutaneous Approach (ICD-10-PCS; 2022-04-06)
DX: M50.023 Cervical disc disorder at C6-C7 level with myelopathy (principal); I10 Essential (primary) hypertension; Z90.49 Acquired absence of other specified parts of digestive tract; Z83.3 Family history of diabetes mellitus; Z82.49 Family history of ischemic heart disease and other diseases of the circulatory system; Z87.891 Personal history of nicotine dependence; Z98.890 Other specified postprocedural states; Z79.899 Other long term (current) drug therapy; Z79.84 Long term (current) use of oral hypoglycemic drugs; Z91.040 Latex allergy status; Z20.822 Contact with and (suspected) exposure to COVID-19; Z90.81 Acquired absence of spleen
CPT/HCPCS: 36415; 36416; 71045; 80048; 81001; 85025; 85610; 85730; 87086; 93005; 93010; 93970; 96374; 96375; 96376; C1713; G0378; J1885; J2250; J2272; J2405; J2704; J3010; J3490; U0002

== ENCOUNTER 2022-07-02 06:34 | Inpatient (IN) | payer MEDICARE ==
[2022-07-02] MEDS ORDERED: Morphine 2 MG/ML VIAL SLOW IVP PRN (06:42)
[2022-07-02] MEDS ORDERED: Prochlorperazine 10 MG/2 ML VIAL IM PRN (06:42)
[2022-07-02] MEDS ORDERED: Mag-Al 1200 mg/1200 mg/30 ML UDCUP PO PRN (06:42)
[2022-07-02] MEDS ORDERED: diphenhydrAMINE 50 MG/ML VIAL IVP PRN (06:42)
[2022-07-02] MEDS ORDERED: Ondansetron PF 4 MG/2 ML Vial IVP PRN (06:42)
[2022-07-02] MEDS ORDERED: Milk Of Magnesia 30 ML UDCUP PO PRN (06:42)
[2022-07-02] MEDS ORDERED: Bisacodyl 10 MG SUPP PR PRN (06:42)
[2022-07-02] MEDS: Sodium Chloride 0.9% 1,000 ML IV SCH ×2 (06:45→21:05)
[2022-07-02] MEDS ORDERED: Tamsulosin HCl 0.4 MG CAP PO SCH (07:15)
[2022-07-02] MEDS ORDERED: Lidocaine 1% MPF 2 ML VIAL ONE (07:58)
[2022-07-02] MEDS ORDERED: CEFAZOLIN 2 GM VIAL ONE (07:58)
[2022-07-02] MEDS ORDERED: Sodium Chloride 0.9% 100 ML ONE (07:59)
[2022-07-02] MEDS: CEFAZOLIN 2 GM in Sodium Chloride 0.9% 100 ML IVPB SCH ×3 (08:00→21:04)
[2022-07-02 08:10] LABS: #Basophils 0.1 thou/uL (0.0-0.2); #Eosinphils 0.5 thou/uL (0.0-0.7); #Lymphocytes 4.7 thou/uL (1.20-3.40); #Monocytes 1.1 thou/uL (0.11-0.59); #Neutrophils 5.2 thou/uL (1.40-6.50); %Basophils 0.9 % (0.0-1.0); %Eosinophils 3.9 % (0.0-10.0); %Lymphocytes 40.5 % (21.0-51.0); %Monocytes 9.5 % (0.0-10.0); %Neutrophils 45.3 % (42.0-75.0); Mean Corpuscular HGB CONC 33.1 g/dL (32.0-36.0); Mean Corpuscular Hemoglobin 30.7 pg (27.0-31.0); Mean Corpuscular Volume 92.6 fl (78.0-98.0); Mean Platelet Volume 8.9 fL (7.4-10.4); Platelet Count 245 10x3/uL (130-400); RBC Distribution Width 13.3 % (11.5-14.5); White Blood Cell (WBC) Count 11.6 10x3/uL (4.8-10.8)
[2022-07-02 08:23] LABS: INR-International Normal Ratio 0.9; Prothrombin Time 12.7 sec (12.0-14.7)
[2022-07-02 08:24] LABS: PTT 28.4 sec (22.9-36.1)
[2022-07-02 08:31] LABS: Anion Gap 13 mmol/L (10-20); BUN (Urea Nitrogen) 15 mg/dL (8.4-25.7); Calc. Creatinine Clearance 125 mL/min (70-130); Calcium 10.7 mg/dL (7.8-10.44); Carbon Dioxide 22 mmol/L (23-31); Chloride 108 mmol/L (98-107); Estimated GFR 95; Glucose 109 mg/dL (80-115); Potassium 4.2 mmol/L (3.5-5.1); Sodium 139 mmol/L (136-145)
[2022-07-02] MEDS: Gabapentin 400 MG CAP PO SCH ×3 (09:00→21:03)
[2022-07-02] MEDS: Amlodipine 10 MG TAB PO SCH (09:00)
[2022-07-02] MEDS: Loratadine 10 MG TAB PO SCH (09:00)
[2022-07-02] MEDS ORDERED: Thrombin 5000 UNITS/5 ML VIAL ONE ×2 (09:22→09:23)
[2022-07-02] MEDS ORDERED: Vancomycin 1 GM VIAL ONE ×2 (09:22→14:22)
[2022-07-02] MEDS ORDERED: Bupivacaine HCl 0.5%/Epinephrine 1:200,000/PF 30 ml Vial ONE (09:23)
[2022-07-02] MEDS ORDERED: Fentanyl 250 MCG/5 ML VIAL ONE (09:29)
[2022-07-02] MEDS ORDERED: Albumin 5% 500 ML ONE (09:29)
[2022-07-02] MEDS ORDERED: Dexmedetomidine 200 MCG/2 ML VIAL ONE (09:29)
[2022-07-02] MEDS ORDERED: MINERAL OIL/WHITE PETROLATUM 3.5 GM TUBE ONE (09:40)
[2022-07-02] MEDS ORDERED: ePHEDrine Sulfate 50 MG/10 ML VIAL ONE (09:44)
[2022-07-02] MEDS ORDERED: Dexamethasone 20 MG/5 ML VIAL ONE (09:44)
[2022-07-02] MEDS ORDERED: PHENYLEPHRINE-NS 100 MCG/ML 10 ML SYRINGE ONE (09:44)
[2022-07-02] MEDS ORDERED: Lidocaine 1% PF 5 ML VIAL ONE (09:44)
[2022-07-02] MEDS ORDERED: Rocuronium Bromide 10 MG/ML (10ML VIAL) ONE (09:44)
[2022-07-02] MEDS ORDERED: Vecuronium 10 MG VIAL ONE (09:44)
[2022-07-02] MEDS ORDERED: Propofol 1,000 MG/100 ML VIAL IV ONE (09:44)
[2022-07-02] MEDS ORDERED: Ondansetron PF 4 MG/2 ML Vial ONE (09:44)
[2022-07-02] MEDS ORDERED: Sevoflurane 250 ML INH ANEST BOTTLE ONE (12:21)
[2022-07-02] MEDS ORDERED: SUGAMMADEX SODIUM 200 MG/2 ML VIAL ONE (13:54)
[2022-07-02] MEDS ORDERED: Ondansetron HCl/PF 4 MG/2 ML Vial IVP PRN (15:18)
[2022-07-02] MEDS ORDERED: Promethazine HCl 25 MG/ML VIAL IM PRN (15:18)
[2022-07-02] MEDS ORDERED: HYDROmorphone 2 MG/ML VIAL SLOW IVP PRN (15:18)
[2022-07-02] MEDS ORDERED: HYDROmorphone 0.5 MG/0.5 ML SYRINGE ONE ×4 (15:24→16:01)
[2022-07-02] MEDS ORDERED: Tamsulosin HCl 0.4 MG CAP ONE (15:24)
[2022-07-02] MEDS ORDERED: fentaNYL 50 mcg/mL 1 mL Vial ONE ×2 (16:21→16:38)
[2022-07-02] MEDS: HYDROcodone/Acetaminophen 10/325 mg Tablet PO PRN ×2 (18:36→23:22)
[2022-07-02] MEDS: tiZANidine HCl 4 MG TAB PO PRN (21:03)
[2022-07-03] MEDS: Tamsulosin HCl 0.4 MG CAP PO SCH ×2 (05:10→20:49)
[2022-07-03] MEDS: CEFAZOLIN 2 GM in Sodium Chloride 0.9% 100 ML IVPB SCH (05:10)
[2022-07-03] MEDS: HYDROcodone/Acetaminophen 10/325 mg Tablet PO PRN ×2 (05:12→23:25)
[2022-07-03] MEDS ORDERED: Simethicone Chewable 80 MG TAB PO SCH (07:00)
[2022-07-03] MEDS: Amlodipine 10 MG TAB PO SCH (08:30)
[2022-07-03] MEDS: Loratadine 10 MG TAB PO SCH (08:32)
[2022-07-03] MEDS: Gabapentin 400 MG CAP PO SCH ×3 (08:32→20:50)
[2022-07-03] MEDS: HYDROcodone/Acetaminophen 7.5/325 mg Tablet PO PRN (08:36)
[2022-07-03] MEDS: Sodium Chloride 0.9% 1,000 ML IV SCH (11:16)
[2022-07-03] MEDS: Acetaminophen/Codeine 30-300mg Tablet PO PRN (16:03)
[2022-07-03 17:16] LABS: Mean Corpuscular HGB CONC 32.9 g/dL (32.0-36.0); Mean Corpuscular Hemoglobin 30.8 pg (27.0-31.0); Mean Corpuscular Volume 93.5 fl (78.0-98.0); Mean Platelet Volume 9.3 fL (7.4-10.4); Platelet Count 194 10x3/uL (130-400); RBC Distribution Width 13.3 % (11.5-14.5); Red Blood Cell (RBC) Count 4.23 mill/uL (4.70-6.10); White Blood Cell (WBC) Count 16.7 10x3/uL (4.8-10.8)
[2022-07-03 17:25] LABS: Anion Gap 12 mmol/L (10-20); BUN (Urea Nitrogen) 14 mg/dL (8.4-25.7); Calc. Creatinine Clearance 118 mL/min (70-130); Calcium 9.9 mg/dL (7.8-10.44); Carbon Dioxide 26 mmol/L (23-31); Chloride 105 mmol/L (98-107); Estimated GFR 93; Glucose 142 mg/dL (80-115); Magnesium 1.9 mg/dL (1.6-2.6); Potassium 4.5 mmol/L (3.5-5.1); Sodium 138 mmol/L (136-145)
[2022-07-03 17:39] LABS: Phosphorus 1.9 mg/dL (2.3-4.7)
[2022-07-03 17:46] LABS: Troponin I Less than 0.010 ng/mL (< 0.028)
[2022-07-03 18:46] LABS: Band 4 % (5-11); Lymphocytes 16 % (21-51); MDiff Complete? YES; Monocytes 13 % (0-10); Neutrophil 67 % (42-75); Platelet Morphology Comment Appears Adequate; RBC Morphology Normal
[2022-07-03] MEDS ORDERED: Lidocaine 4% Patch TD PRN (19:52)
[2022-07-03 20:29] LABS: Troponin I Less than 0.010 ng/mL (< 0.028)
[2022-07-03] MEDS: Brimonidine Tartrate 0.2% Ophth Soln 5 ml Bottle EA EYE SCH (20:49)
[2022-07-03] MEDS: Acetaminophen 325 MG TAB PO PRN (20:50)
[2022-07-03 21:12] LABS: Bacteria/HPF None Seen HPF (None Seen); Bilirubin Negative (Negative); Blood, Urine Negative (Negative); Clarity Clear (Clear); Glucose, Urine (Dipstick) 50 mg/dL (Negative); Ketone, Urine Negative (Negative); Leukocyte Negative Leu/uL (Negative); Nitrite Negative (Negative); Protein, Urine (Dipstick) 20 mg/dL (Neg-Trace); RBC/HPF 0-3 HPF (0-3); Specific Gravity, Urine 1.023 (1.002-1.036); Squamous Epithelial 0-3 HPF (0-3); Urobilinogen Normal mg/dL (Less than 2); WBC/HPF 0-3 HPF (0-3); pH, Urine 5.5 (5.0-9.0)
[2022-07-04] LABS: Troponin I 0.014 ng/mL (< 0.028)
[2022-07-04] MEDS: Sodium Chloride 0.9% 1,000 ML IV SCH ×2 (02:25→12:05)
[2022-07-04] MEDS: Tamsulosin HCl 0.4 MG CAP PO SCH ×2 (08:49→20:52)
[2022-07-04] MEDS: Loratadine 10 MG TAB PO SCH (08:49)
[2022-07-04] MEDS: Amlodipine 10 MG TAB PO SCH (08:50)
[2022-07-04] MEDS: Gabapentin 400 MG CAP PO SCH ×3 (08:50→20:52)
[2022-07-04] MEDS: Polyethylene Glycol 3350 17 GM Packet PO SCH (08:51)
[2022-07-04] MEDS: Brimonidine Tartrate 0.2% Ophth Soln 5 ml Bottle EA EYE SCH ×2 (08:51→20:53)
[2022-07-04] MEDS: Latanoprost 0.005% Ophth Soln 2.5 ml Bottle L EYE SCH (08:52)
[2022-07-04] MEDS: HYDROcodone/Acetaminophen 10/325 mg Tablet PO PRN ×2 (08:53→15:24)
[2022-07-04] MEDS: Transdermal Patch Removal TOP SCH (09:00)
[2022-07-04 09:23] LABS: Hemoglobin 11.8 g/dL (14.0-18.0); Mean Corpuscular HGB CONC 33.4 g/dL (32.0-36.0); Mean Corpuscular Volume 92.9 fl (78.0-98.0); Mean Platelet Volume 8.7 fL (7.4-10.4); Platelet Count 197 10x3/uL (130-400); RBC Distribution Width 13.3 % (11.5-14.5); White Blood Cell (WBC) Count 17.5 10x3/uL (4.8-10.8)
[2022-07-04 09:38] LABS: Anion Gap 11 mmol/L (10-20); BUN (Urea Nitrogen) 11 mg/dL (8.4-25.7); Calc. Creatinine Clearance 124 mL/min (70-130); Calcium 9.6 mg/dL (7.8-10.44); Carbon Dioxide 25 mmol/L (23-31); Chloride 105 mmol/L (98-107); Estimated GFR 95; Glucose 136 mg/dL (80-115); Potassium 4.4 mmol/L (3.5-5.1); Sodium 137 mmol/L (136-145)
[2022-07-04 10:23] LABS: Eosinophils 1 % (0-10); Lymphocytes 24 % (21-51); MDiff Complete? YES; Monocytes 14 % (0-10); Neutrophil 61 % (42-75); Platelet Morphology Comment Appears Adequate; RBC Morphology Normal
[2022-07-04] MEDS: Acetaminophen/Codeine 30-300mg Tablet PO PRN ×2 (12:04→21:02)
[2022-07-04] MEDS: tiZANidine HCl 4 MG TAB PO PRN (17:04)
[2022-07-05] MEDS: Acetaminophen/Codeine 30-300mg Tablet PO PRN (00:50)
[2022-07-05] MEDS: Sodium Chloride 0.9% 1,000 ML IV SCH (03:37)
[2022-07-05] MEDS: Tamsulosin HCl 0.4 MG CAP PO SCH ×2 (05:34→21:19)
[2022-07-05] MEDS: tiZANidine HCl 4 MG TAB PO PRN (05:34)
[2022-07-05 06:09] LABS: #Basophils 0.1 thou/uL (0.0-0.2); #Eosinphils 0.5 thou/uL (0.0-0.7); #Lymphocytes 4.5 thou/uL (1.20-3.40); #Monocytes 2.2 thou/uL (0.11-0.59); #Neutrophils 8.9 thou/uL (1.40-6.50); %Basophils 0.6 % (0.0-1.0); %Eosinophils 3.1 % (0.0-10.0); %Lymphocytes 27.7 % (21.0-51.0); %Monocytes 13.5 % (0.0-10.0); %Neutrophils 55.2 % (42.0-75.0); Hemoglobin 11.5 g/dL (14.0-18.0); Mean Corpuscular HGB CONC 33.4 g/dL (32.0-36.0); Mean Corpuscular Hemoglobin 31.7 pg (27.0-31.0); Mean Corpuscular Volume 95.1 fl (78.0-98.0); Mean Platelet Volume 8.9 fL (7.4-10.4); Platelet Count 194 10x3/uL (130-400); RBC Distribution Width 13.2 % (11.5-14.5); Red Blood Cell (RBC) Count 3.61 mill/uL (4.70-6.10); White Blood Cell (WBC) Count 16.1 10x3/uL (4.8-10.8)
[2022-07-05 06:23] LABS: Anion Gap 12 mmol/L (10-20); BUN (Urea Nitrogen) 13 mg/dL (8.4-25.7); Calc. Creatinine Clearance 134 mL/min (70-130); Calcium 9.8 mg/dL (7.8-10.44); Carbon Dioxide 26 mmol/L (23-31); Chloride 104 mmol/L (98-107); Estimated GFR 97; Glucose 103 mg/dL (80-115); Potassium 4.1 mmol/L (3.5-5.1); Sodium 138 mmol/L (136-145)
[2022-07-05] MEDS: Gabapentin 400 MG CAP PO SCH ×3 (09:37→21:20)
[2022-07-05] MEDS: Polyethylene Glycol 3350 17 GM Packet PO SCH (09:37)
[2022-07-05] MEDS: Latanoprost 0.005% Ophth Soln 2.5 ml Bottle L EYE SCH (09:37)
[2022-07-05] MEDS: Amlodipine 10 MG TAB PO SCH (09:38)
[2022-07-05] MEDS: Loratadine 10 MG TAB PO SCH (09:38)
[2022-07-05] MEDS: metFORMIN 500 MG TAB PO SCH (09:38)
[2022-07-05] MEDS: Transdermal Patch Removal TOP SCH (09:39)
[2022-07-05] MEDS: HYDROcodone/Acetaminophen 10/325 mg Tablet PO PRN ×2 (09:40→13:37)
[2022-07-05] MEDS: Brimonidine Tartrate 0.2% Ophth Soln 5 ml Bottle EA EYE SCH ×2 (09:40→21:20)
[2022-07-05] MEDS: Acetaminophen 325 MG TAB PO PRN (13:37)
[2022-07-05] MEDS: Docusate 100 MG CAP PO PRN (21:19)
[2022-07-06] MEDS: tiZANidine HCl 4 MG TAB PO PRN (00:48)
[2022-07-06] MEDS: HYDROcodone/Acetaminophen 10/325 mg Tablet PO PRN ×2 (00:48→20:58)
[2022-07-06] MEDS: Polyethylene Glycol 3350 17 GM Packet PO SCH (08:59)
[2022-07-06] MEDS: Gabapentin 400 MG CAP PO SCH ×3 (08:59→20:57)
[2022-07-06] MEDS: Brimonidine Tartrate 0.2% Ophth Soln 5 ml Bottle EA EYE SCH ×2 (08:59→21:07)
[2022-07-06] MEDS: Amlodipine 10 MG TAB PO SCH (08:59)
[2022-07-06] MEDS: Loratadine 10 MG TAB PO SCH (08:59)
[2022-07-06] MEDS: metFORMIN 500 MG TAB PO SCH (08:59)
[2022-07-06] MEDS: Latanoprost 0.005% Ophth Soln 2.5 ml Bottle L EYE SCH (09:00)
[2022-07-06] MEDS: Acetaminophen/Codeine 30-300mg Tablet PO PRN ×2 (09:01→15:16)
[2022-07-06] MEDS: Transdermal Patch Removal TOP SCH (09:14)
[2022-07-06] MEDS: Docusate 100 MG CAP PO PRN (15:16)
[2022-07-06] MEDS ORDERED: Magnesium Citrate 300 ML BOT PO SCH (16:15)
[2022-07-06] MEDS: Tamsulosin HCl 0.4 MG CAP PO SCH (20:57)
[2022-07-07] MEDS: HYDROcodone/Acetaminophen 7.5/325 mg Tablet PO PRN (06:22)
[2022-07-07] MEDS: metFORMIN 500 MG TAB PO SCH (08:54)
[2022-07-07] MEDS: Amlodipine 10 MG TAB PO SCH (08:54)
[2022-07-07] MEDS: Acetaminophen/Codeine 30-300mg Tablet PO PRN (08:54)
[2022-07-07] MEDS: Loratadine 10 MG TAB PO SCH (08:54)
[2022-07-07] MEDS: Gabapentin 400 MG CAP PO SCH (08:55)
[2022-07-07] MEDS: tiZANidine HCl 4 MG TAB PO PRN (08:55)
[2022-07-07] MEDS: Polyethylene Glycol 3350 17 GM Packet PO SCH (10:54)
[2022-07-07] MEDS: Latanoprost 0.005% Ophth Soln 2.5 ml Bottle L EYE SCH (10:54)
[2022-07-07] MEDS: Transdermal Patch Removal TOP SCH (10:54)
[2022-07-07] MEDS: Brimonidine Tartrate 0.2% Ophth Soln 5 ml Bottle EA EYE SCH (10:54)
[2022-07-07 11:31] VITALS: BP 117/68; TEMP 97.9
[2022-07-07 16:11] VITALS: BMI 36.1
== END 2022-07-07 12:26 | DRG 455 ==
LOC: SDC 06:34 → SURG B 16:58 → OBSVTOIN 07-04 15:03
PROVIDERS: ADMIT Neurological Surgery; ATTEND Neurological Surgery
PROC: 0SG30AJ Fusion of Lumbosacral Joint with Interbody Fusion Device, Posterior Approach, Anterior Column, Open Approach (ICD-10-PCS; principal; 2022-07-02)
PROC: 0SG3071 Fusion of Lumbosacral Joint with Autologous Tissue Substitute, Posterior Approach, Posterior Column, Open Approach (ICD-10-PCS; 2022-07-02)
PROC: 01NB0ZZ Release Lumbar Nerve, Open Approach (ICD-10-PCS; 2022-07-02)
PROC: 0SB40ZZ Excision of Lumbosacral Disc, Open Approach (ICD-10-PCS; 2022-07-02)
PROC: 0SB20ZZ Excision of Lumbar Vertebral Disc, Open Approach (ICD-10-PCS; 2022-07-02)
DX: M48.062 Spinal stenosis, lumbar region with neurogenic claudication (principal); M51.87 Other intervertebral disc disorders, lumbosacral region; I10 Essential (primary) hypertension; E11.9 Type 2 diabetes mellitus without complications; E78.5 Hyperlipidemia, unspecified; N40.1 Benign prostatic hyperplasia with lower urinary tract symptoms; R35.0 Frequency of micturition; Z87.891 Personal history of nicotine dependence; Z79.84 Long term (current) use of oral hypoglycemic drugs; Z79.899 Other long term (current) drug therapy; Z91.040 Latex allergy status
CPT/HCPCS: 36415; 71046; 74018; 80048; 81001; 83735; 83880; 84100; 84484; 85025; 85610; 85730; 93005; 93010; 93970; 96365; 96366; C1713; C1768; C1776; C1889; G0378; J1100; J1170; J2405; J2704; J3010; J3370; J3490; J7050; P9045